=== PATIENT | female | born 1965 | race Caucasian/White ===

== ENCOUNTER 2017-05-04 07:05 | Emergency (ER) | payer OTHER ==
[~2017-05-04] VITALS: Ht 170.2 cm; Wt 54.4 kg
[~2017-05-04 07:05] MED LIST: LAC PO; MAC100 PO; TRAMADOL HCL50 MG; TRAMADOL HCL50 MG PO; TYL325 PO
[2017-05-04 07:16] VITALS: Ht 170.2 cm; Wt 54.4 kg
[2017-05-04 07:56] LABS: BASOPHIL % 0.2 % (0-2); RED CELL DISTRIBUTION WIDTH 12.9 % (11.5-14.5)
[2017-05-04 07:57] LABS: PLATELET COUNT 126 x10^3mcL (130-400)
[2017-05-04 08:15] LABS: UA SPECIFIC GRAVITY 1.025 (1.005-1.035); microscopic required? YES; urine erythrocyte 1+ (NEGATIVE)
[2017-05-04 08:17] LABS: CALCIUM 8.4 mg/dL (8.5-10.1); CARBON DIOXIDE 27.3 mmol/L (21-32); CHLORIDE SERUM 104 mmol/L (98-107); CREATININE SERUM 0.9 mg/dL (0.6-1.0); GFR1 > 60 mL/min; GLUCOSE SERUM 105 mg/dL (74-106); POTASSIUM SERUM 4.3 mmol/L (3.5-5.1); SODIUM SERUM 136 mmol/L (136-145)
[2017-05-04 08:20] LABS: ALBUMIN 3.7 g/dL (3.4-5.0); ALKALINE PHOSPHATASE 122 U/L (46-116); ALT/SGPT 33 U/L (14-59); AST/SGOT 38 U/L (15-37); BILIRUBIN TOTAL 0.4 mg/dL (0.20-1.00); HDL CHOLESTEROL 60 mg/dL (40-60); LIPASE 162 IU/L (73-393); TOTAL PROTEIN, SERUM 6.8 g/dL (6.4-8.2); TRIGLYCERIDES 45 mg/dL (<150)
[2017-05-04 08:21] LABS: CHOLESTEROL 123 mg/dL (<200); CHOLESTEROL/HDL RATIO 2.1
[2017-05-04 08:29] LABS: FREE T4 0.95 ng/dL (0.76-1.46); FREE THYROXINE INDEX 2.2 ug/dL (1.4-4.5); T4(THYROXINE) 6.1 ug/dL (4.7-13.3)
[2017-05-04 09:58] LABS: T3 TOTAL 0.72 ng/mL
[2017-05-04 10:35] VITALS: BP 114/71
== END 2017-05-04 10:35 | disposition home or self-care (01) ==
LOC: ED 07:05
PROVIDERS: Specialist
DX: J10.1 Influenza due to other identified influenza virus with other respiratory manifestations (principal); R55 Syncope and collapse; E86.0 Dehydration; Z90.49 Acquired absence of other specified parts of digestive tract
CPT/HCPCS: 83880; 84439; 87804; J7030